=== PATIENT | female | born 1995 | race African-American/Black ===

== ENCOUNTER 2019-02-10 10:36 | Emergency (ER) | payer SELFPAY ==
[~2019-02-10] VITALS: Ht 157.5 cm; Wt 54.4 kg
[2019-02-10 10:56] VITALS: BP 127/81
--- NOTE | 2019-02-10 10:56 | NUR ---
ED Nurse Note: Patient walked in to ER c/o pressure when she voids urine. pt had same symptom and took antibiotic from her pcp which she does not remember the name and last dose was last Thursday. pt aao x4 and ambulatory. skin clean and intact. calm and cooperative. per pt, symptom is getting worse. pt denied vagina swelling, or discharge. pt c/o abdominal pain 6/10 upon urination. pt was able to provide urine sample.
--- NOTE | 2019-02-10 11:08 | Emergency Room Report ---
History of Present Illness General Chief Complaint: Abdominal Pain Source: Patient Present Illness HPI Patient presents with complaints of lower suprapubic pain Reports that earlier in the month she had a fainting episode and was found to have a bladder infection took antibiotics and was doing somewhat better however recently Since this morning again felt discomfort in the suprapubic region Denies any vomiting or diarrhea denies any chest pain denies any shortness of breath Patient reports that she wanted to get her urine checked because last time it was worsened quickly Allergies: Coded Allergies: No Known Allergies (Unverified , 02/10/19) Patient History Past Medical History: see triage record Pertinent Family History: none Last Menstrual Period: 01/27/19 Reviewed Nursing Documentation: PMH: Agreed; PSxH: Agreed Nursing Documentation-PMH Past Medical History: No Stated History Review of Systems All Other Systems: negative except mentioned in HPI Physical Exam Vital Signs Date Time Temp Pulse Resp B/P (MAP) Pulse Ox O2 Delivery O2 Flow Rate FiO2 02/10/19 10:44 98.6 96 17 127/81 (96) 99 Room Air Sp02 EP Interpretation: reviewed, normal General Appearance: well appearing, no apparent distress Head: normocephalic, atraumatic Eyes: bilateral eye PERRL, bilateral eye EOMI ENT: hearing grossly normal, normal pharynx, TMs + canals normal, uvula midline Neck: full range of motion, supple, no meningismus, no bony tend Respiratory: lungs clear, normal breath sounds, no rhonchi, no respiratory distress, no retraction, no accessory muscle use Cardiovascular #1: normal peripheral pulses, regular rate, rhythm, no edema, no gallop, no JVD, no murmur Gastrointestinal: normal bowel sounds, non tender, soft, no mass, no organomegaly, non-distended, no guarding, no hernia, no pulsatile mass, no rebound Genitourinary: no CVA tenderness Musculoskeletal: normal inspection Neurologic: oriented x3, responsive, fiber optics technician III-XII nml as tested, motor strength/ tone normal, sensory intact Psychiatric: mood/affect normal Skin: normal color, no rash, warm/dry, palpation normal Lymphatic: normal inspection, no adenopathy Medical Decision Making Diagnostic Impression: Primary Impression: Dysuria Additional Impression: Abdominal pain ER Course With the patient's history and examination, multiple differentials considered, including but not limited to , ectopic , ovarian torsion, gastritis, cholecystitis, pancreatitis, appendicitis Patient's urine sample is question will be mildly contaminated no obvious overt signs of infection given the few bacteria however in the patient's symptoms I did write a prescription in case the patient's symptoms worsened At this time the lower abdominal examination is otherwise soft and benign my suspicion for appendicitis is low patient did not require initial emergency imaging or blood work And will return with any changes Upon providing referrals for outpatient clinics patient reports that she will be moving to [place] and will follow there Labs Test 02/10/19 10:55 Urine Color Pale yellow Urine Appearance Clear Urine pH 8 (4.5-8.0) Urine Specific Armstrong 1.010 (1.005-1.035) Urine Protein Negative (NEGATIVE) Urine Glucose (UA) Negative (NEGATIVE) Urine Ketones Negative (NEGATIVE) Urine Blood Negative (NEGATIVE) Urine Nitrite Negative (NEGATIVE) Urine Bilirubin Negative (NEGATIVE) Urine Urobilinogen Normal MG/DL (0.0-1.0) Urine Leukocyte Esterase 1+ (NEGATIVE) Urine RBC 0-2 /HPF (0 - 2) Urine WBC 0-2 /HPF (0 - 2) Urine Squamous Epithelial Cells Few /LPF (NONE/OCC) Urine Bacteria Occasional /HPF (NONE) Urine HCG, Qualitative Negative (NEGATIVE) Last Vital Signs Date Time Temp Pulse Resp B/P (MAP) Pulse Ox O2 Delivery O2 Flow Rate FiO2 02/10/19 10:44 98.6 96 17 127/81 (96) 99 Room Air Status: improved Disposition: HOME, SELF-CARE Condition: Stable Scripts Phenazopyridine Hcl* (PYRIDIUM*) 100 Mg Tablet 100 MG ORAL THREE TIMES A DAY, #9 TAB Prov: Alejandro Luis DO 02/10/19 Trimethoprim/Sulfamethoxazole 160/800* (BACTRIM DS TABLET*) 1 Each Tablet 1 TAB ORAL Q12H, #14 TAB 0 Refills Prov: Alejandro Luis DO 02/10/19 Additional Instructions: Patient is provided with the discharge instructions notified to follow up with primary doctor in the next 2-3 days otherwise return to the er with any worsening symptoms. Please note that this report is being documented using [employer] technology. This can lead to erroneous entry secondary to incorrect interpretation by the dictating instrument. Alejandro Luis DO Feb 10, 2019 11:08
[2019-02-10 11:15] LABS: APPEARANCE,URINE CLEAR; BILIRUBIN, URINE NEGATIVE (NEGATIVE); COLOR,URINE PALE YELLOW; GLUCOSE, URINE (UA) NEGATIVE (NEGATIVE); KETONES,URINE NEGATIVE (NEGATIVE); LEUKOCYTE ESTERASE ,URINE 1+ (NEGATIVE); NITRITE,URINE NEGATIVE (NEGATIVE); PH,URINE 8 (4.5-8.0); PROTEIN,URINE NEGATIVE (NEGATIVE); UROBILINOGEN,URINE NORMAL MG/DL (0.0-1.0)
[2019-02-10] MEDS ORDERED: PHENAZOPYRIDIN100 MG ORAL (12:05)
[2019-02-10] MEDS ORDERED: BACTRIM DS TAB1 EAC1 ORAL (12:05)
[2019-02-10 12:07] VITALS: BP 118/71
--- NOTE | 2019-02-10 12:07 | NUR ---
ER DISCHARGE NOTE: Patient is cleared to be discharged per ERMD, pt is aox4, on room air, with stable vital signs. pt was given dc and prescription electronically, pt was able to verbalize understanding, pt id band removed. pt is able to ambulate with steady gait. pt took all belongings.
== END 2019-02-10 12:07 | disposition home or self-care (01) ==
LOC: EMR 11:20
DX: R10.30 Lower abdominal pain, unspecified (principal); R30.0 Dysuria
CPT/HCPCS: 81003; 81025; 99282